=== PATIENT | male | born 1970 | race Caucasian/White ===

== ENCOUNTER 2016-06-05 18:08 | Emergency (ER) | payer MEDICAID ==
[2011-09-22 14:16] VITALS: BMI 25.0
[2016-06-05 18:49] LABS: BASOPHILS 0.6 % (0.0-2.0); EOSINOPHILS 0.1 % (0-7); HEMATOCRIT 48.3 % (42.0-54.0); HEMOGLOBIN 16.6 g/dL (13.5-17.5); IMMATURE GRANULOCYTES 0.1 % (0-5); LYMPHOCYTES 30.1 % (15-50); MCH 33.5 pg (26.0-34.0); MCHC 34.4 g/dL (31.0-37.0); MCV 97.4 fL (80.0-100.0); MEAN PLATELET VOLUME 9.6 fL (7.4-10.4); MONOCYTES 8.2 % (2-11); NEUTROPHILS 60.9 % (40-80); RBC 4.96 10x6/uL (4.20-6.10); RDW 13.7 % (11.5-14.5); WBC 7.2 10x3/uL (4.8-10.8)
[2016-06-05 18:55] LABS: PLATELET COUNT 293 10x3/uL (130-400)
[2016-06-05 19:04] LABS: ALBUMIN 4.1 g/dL (3.4-5.0); ALKALINE PHOSPHATASE 103 U/L (46-116); ALT (SGPT) 53 U/L (10-68); BILIRUBIN - TOTAL 0.39 mg/dL (0.2-1.3); CALC OSMOLALITY 287 mosm/kg (275-300); CARBON DIOXIDE 25.8 mmol/L (21.0-32.0); CHLORIDE - SERUM 102 mmol/L (98-107); CREATININE - SERUM 1.1 mg/dL (0.6-1.3); GLUCOSE 115 mg/dL (74-106); POTASSIUM - SERUM 3.9 mmol/L (3.5-5.1); PROTEIN - SERUM 7.9 g/dL (6.4-8.2); SODIUM 144 mmol/L (136-145); UREA NITROGEN 12 mg/dL (7-18); eGFR NON AFRICAN AMERICAN 76 mL/min (90-120)
[2016-06-05 19:05] LABS: APPEARANCE CLEAR (CLEAR); BACTERIA FEW /hpf (NONE SEEN); BILIRUBIN NEGATIVE (NEGATIVE); CALCIUM OXALATE CRYSTALS 0-5 /hpf (NONE SEEN); COLOR YELLOW (YELLOW); EPITHELIAL CELLS 0-5 /hpf (0-5); GLUCOSE NEGATIVE (NEGATIVE); HYALINE CAST OCC /lpf (NONE SEEN); KETONE NEGATIVE (NEGATIVE); LEUKOCYTE ESTERASE NEGATIVE (NEGATIVE); MUCUS >1+ /lpf (NONE SEEN); NITRITE NEGATIVE (NEGATIVE); PROTEIN TRACE mg/dL (NEGATIVE); SPECIFIC GRAVITY 1.015 (1.005-1.020); UDS - AMPHET NEGATIVE QUAL (NEGATIVE); UDS - BARB NEGATIVE QUAL (NEGATIVE); UDS - BENZO NEGATIVE QUAL (NEGATIVE); UDS - COCAINE NEGATIVE QUAL (NEGATIVE); UDS - METH NEGATIVE QUAL (NEGATIVE); UDS - OPIATE NEGATIVE QUAL (NEGATIVE); UDS - PCP NEGATIVE QUAL (NEGATIVE); UDS - THC NEGATIVE QUAL (NEGATIVE); UROBILINOGEN NORMAL (NORMAL); WHITE CELLS - URINE 0-5 /hpf (0-5)
== END 2016-06-06 04:53 | disposition short-term general hospital (02) ==
LOC: D.ER 18:08
PROVIDERS: Emergency Medicine
DX: F33.9 Major depressive disorder, recurrent, unspecified (principal); F10.10 Alcohol abuse, uncomplicated; F41.9 Anxiety disorder, unspecified; I10 Essential (primary) hypertension

== ENCOUNTER 2017-06-02 20:31 | Emergency (ER) | payer MEDICAID ==
[2011-09-22 14:16] VITALS: BMI 25.0
[2017-06-02 20:55] LABS: BASOPHILS 0.3 % (0-2); EOSINOPHILS 0.8 % (0-7); HEMATOCRIT 42.6 % (42.0-54.0); HEMOGLOBIN 14.8 g/dL (13.5-17.5); IMMATURE GRANULOCYTES 0.3 % (0-5); LYMPHOCYTES 33.8 % (15-50); MCH 34.3 pg (26.0-34.0); MCHC 34.7 g/dL (31.0-37.0); MCV 98.6 fL (80.0-100.0); MEAN PLATELET VOLUME 9.7 fL (7.4-10.4); MONOCYTES 8.5 % (2-11); NEUTROPHILS 56.3 % (40-80); RBC 4.32 10x6/uL (4.20-6.10); RDW 13.4 % (11.5-14.5); WBC 8.7 10x3/uL (4.8-10.8)
[2017-06-02 21:00] LABS: PLATELET COUNT 204 10x3/uL (130-400)
[2017-06-02 21:11] LABS: ALBUMIN 3.8 g/dL (3.4-5.0); ANION GAP 11.8 mmol/L (8-16); BILIRUBIN - TOTAL 0.24 mg/dL (0.2-1.3); CALCIUM 8.8 mg/dL (8.5-10.1); CARBON DIOXIDE 28.6 mmol/L (21.0-32.0); CREATININE - SERUM 1.5 mg/dL (0.6-1.3); MAGNESIUM - SERUM 1.7 mg/dL (1.8-2.4); POTASSIUM - SERUM 3.4 mmol/L (3.5-5.1); PROTEIN - SERUM 7.2 g/dL (6.4-8.2)
== END 2017-06-02 23:45 | disposition home or self-care (01) ==
LOC: D.ER 20:31
PROVIDERS: Emergency Medicine
DX: F10.239 Alcohol dependence with withdrawal, unspecified (principal); I10 Essential (primary) hypertension

== ENCOUNTER → 2019-09-23 09:09 | Outpatient (CLI) | payer MEDICAID ==
[2011-09-22 14:16] VITALS: BMI 25.0
== END | disposition home or self-care (01) ==
LOC: D.US 09:09
PROVIDERS: ATTEND Emergency Medicine
DX: R79.89 Other specified abnormal findings of blood chemistry (principal); E78.00 Pure hypercholesterolemia, unspecified

== ENCOUNTER 2019-10-19 15:31 | Inpatient (IN) | payer MEDICAID ==
[~2019-10-19] VITALS: Ht 185.4 cm; Wt 104.3 kg
[2019-10-19] MEDS ORDERED: OMEPRAZOLE20 M1 PO (15:45)
[2019-10-19] MEDS ORDERED: CLARITIN 10 MG10 MG PO (15:46)
[2019-10-19] MEDS ORDERED: LIPITOR20 MG PO (15:46)
[2019-10-19] MEDS ORDERED: CARAFATE1 G PO (15:46)
[2019-10-19] MEDS ORDERED: COZAAR50 MG PO (15:46)
[2019-10-19 16:41] LABS: HEMATOCRIT 40.8 % (42.0-54.0); HEMOGLOBIN 14.3 g/dL (13.5-17.5); MCH 35.1 pg (26.0-34.0); MCV 100.2 fL (80.0-100.0); MEAN PLATELET VOLUME 10.1 fL (7.4-10.4); NEUTROPHILS 78.8 % (40-80); PLATELET COUNT 209 10x3/uL (130-400); RBC 4.07 10x6/uL (4.20-6.10); RDW 13.5 % (11.5-14.5); WBC 11.3 10x3/uL (4.8-10.8)
[2019-10-19 16:48] LABS: ALBUMIN 2.6 g/dL (3.4-5.0); ALKALINE PHOSPHATASE 221 U/L (30-120); AMYLASE - SERUM 93 U/L (25-115); BILIRUBIN - TOTAL 1.35 mg/dL (0.2-1.3); CALC OSMOLALITY 266 mosm/kg (275-300); CALCIUM 7.2 mg/dL (8.5-10.1); CARBON DIOXIDE 20.1 mmol/L (21.0-32.0); CHLORIDE - SERUM 97 mmol/L (98-107); GLUCOSE 160 mg/dL (74-106); LIPASE 1009 U/L (73-393); POTASSIUM - SERUM 3.7 mmol/L (3.5-5.1); SODIUM 130 mmol/L (136-145); TROPONIN-I < 0.017 ng/mL (0.000-0.060); UREA NITROGEN 20 mg/dL (7-18)
[2019-10-19 17:12] LABS: CREATININE - SERUM 1.7 mg/dL (0.6-1.3); eGFR NON AFRICAN AMERICAN 45 mL/min (90-120)
[2019-10-19 17:13] LABS: ALT (SGPT) 97 U/L (10-68); PROTEIN - SERUM 5.4 g/dL (6.4-8.2)
[2019-10-19 17:50] LABS: BACTERIA MODERATE /hpf (NEGATIVE); BILIRUBIN NEGATIVE (NEGATIVE); GLUCOSE NEGATIVE (NEGATIVE); KETONE NEGATIVE (NEGATIVE); NITRITE NEGATIVE (NEGATIVE); RED CELLS - URINE OCC /hpf (0-5); SPECIFIC GRAVITY 1.015 (1.005-1.020); UROBILINOGEN NORMAL (NORMAL); WHITE CELLS - URINE 0-5 /hpf (NEGATIVE)
[2019-10-19 19:00] VITALS: BP 101/70
[2019-10-19 20:00] VITALS: BP 122/83
--- NOTE | 2019-10-19 20:48 | NUR ---
WILL RESCREEN PT FOR COVID-19 DUE TO PT BEING TESTED AT PCP OFFICE 10/18/2019. NEW SCREEN FOR THIS STAY.
[2019-10-19] MEDS ORDERED: ADDERALL 30 MG30 MG PO (21:40)
[2019-10-19 21:42] VITALS: BMI 30.4
[2019-10-20] VITALS: BP 120/78
[2019-10-20 06:34] LABS: INR 1.04 (0.85-1.17); PROTIME 13.6 SECONDS (11.6-15.0)
[2019-10-20 07:21] LABS: HEMATOCRIT 34.4 % (42.0-54.0); HEMOGLOBIN 12.1 g/dL (13.5-17.5); LYMPHOCYTES 10.2 % (15-50); MCH 35.7 pg (26.0-34.0); MCHC 35.2 g/dL (31.0-37.0); MCV 101.5 fL (80.0-100.0); MEAN PLATELET VOLUME 11.8 fL (7.4-10.4); NEUTROPHILS 82.6 % (40-80); PLATELET COUNT 221 10x3/uL (130-400); RBC 3.39 10x6/uL (4.20-6.10); RDW 13.9 % (11.5-14.5); WBC 12.9 10x3/uL (4.8-10.8)
[2019-10-20 07:32] LABS: ANION GAP 16.6 mmol/L (8-16); CREATININE - SERUM 1.4 mg/dL (0.6-1.3); POTASSIUM - SERUM 3.6 mmol/L (3.5-5.1)
[2019-10-20 07:33] LABS: ALBUMIN 2.8 g/dL (3.4-5.0); BILIRUBIN - TOTAL 0.85 mg/dL (0.2-1.3); PROTEIN - SERUM 4.9 g/dL (6.4-8.2)
[2019-10-20 07:38] LABS: CALCIUM 6.2 mg/dL (8.5-10.1)
--- NOTE | 2019-10-20 09:15 | NUR ---
Scanned lab results COVID19 Negative from physician's office. Discontinue COVID19 Isolation.
[2019-10-20 13:47] VITALS: Ht 185.4 cm; Wt 104.3 kg
[2019-10-20 14:49] VITALS: BP 126/74
[2019-10-20 20:00] VITALS: BP 131/87
--- NOTE | 2019-10-21 03:13 | NUR ---
I have reviewed this patient and I concur with the Shift Assessment completed by the Licensed Practical Nurse today this shift.
[2019-10-21 04:00] VITALS: BP 112/62
[2019-10-21 06:10] LABS: ALBUMIN 2.3 g/dL (3.4-5.0); ALKALINE PHOSPHATASE 189 U/L (30-120); CARBON DIOXIDE 22.7 mmol/L (21.0-32.0); CREATININE - SERUM 1.1 mg/dL (0.6-1.3); GLUCOSE 92 mg/dL (74-106); PROTEIN - SERUM 5.5 g/dL (6.4-8.2); eGFR NON AFRICAN AMERICAN 75 mL/min (90-120)
[2019-10-21 06:38] LABS: HEMATOCRIT 32.2 % (42.0-54.0); HEMOGLOBIN 11.3 g/dL (13.5-17.5); LYMPHOCYTES 18.2 % (15-50); MCH 35.6 pg (26.0-34.0); MCHC 35.1 g/dL (31.0-37.0); MCV 101.6 fL (80.0-100.0); MEAN PLATELET VOLUME 11.4 fL (7.4-10.4); NEUTROPHILS 71.6 % (40-80); RBC 3.17 10x6/uL (4.20-6.10); RDW 13.5 % (11.5-14.5)
[2019-10-21 06:40] LABS: PLATELET COUNT 163 10x3/uL (130-400); WBC 6.5 10x3/uL (4.8-10.8)
[2019-10-21 07:44] LABS: ALT (SGPT) 61 U/L (10-68); AMYLASE - SERUM 31 U/L (25-115); LIPASE 237 U/L (73-393); UREA NITROGEN 6 mg/dL (7-18)
[2019-10-21 07:45] LABS: CALC OSMOLALITY 275 mosm/kg (275-300); CHLORIDE - SERUM 106 mmol/L (98-107); SODIUM 139 mmol/L (136-145)
[2019-10-21 07:46] LABS: CALCIUM 6.5 mg/dL (8.5-10.1)
[2019-10-21 08:22] VITALS: BP 140/90
[2019-10-21 11:19] VITALS: BP 134/89
[2019-10-21 20:27] VITALS: BP 159/94
[2019-10-22 04:39] VITALS: BP 139/88
--- NOTE | 2019-10-22 06:41 | NUR ---
I have reviewed this patient and I concur with the Shift Assessment completed by the Licensed Practical Nurse today this shift.
[2019-10-22 06:47] LABS: ALBUMIN 2.4 g/dL (3.4-5.0); ANION GAP 11.3 mmol/L (8-16); BILIRUBIN - TOTAL 0.88 mg/dL (0.2-1.3); CARBON DIOXIDE 26.9 mmol/L (21.0-32.0); CREATININE - SERUM 1.2 mg/dL (0.6-1.3); POTASSIUM - SERUM 3.2 mmol/L (3.5-5.1); PROTEIN - SERUM 5.7 g/dL (6.4-8.2)
[2019-10-22 06:52] LABS: CALCIUM 6.9 mg/dL (8.5-10.1)
[2019-10-22 07:07] LABS: BASOPHILS 0.3 % (0-2); EOSINOPHILS 1.7 % (0-7); HEMATOCRIT 32.6 % (42.0-54.0); HEMOGLOBIN 10.8 g/dL (13.5-17.5); IMMATURE GRANULOCYTES 0.3 % (0-5); MCH 33.6 pg (26.0-34.0); MCHC 33.1 g/dL (31.0-37.0); MCV 101.6 fL (80.0-100.0); MEAN PLATELET VOLUME 9.8 fL (7.4-10.4); MONOCYTES 9.6 % (2-11); NEUTROPHILS 64.1 % (40-80); PLATELET COUNT 127 10x3/uL (130-400); RBC 3.21 10x6/uL (4.20-6.10); RDW 13.7 % (11.5-14.5); WBC 5.8 10x3/uL (4.8-10.8)
--- NOTE | 2019-10-22 07:55 | NUR ---
PT ROLLED OVER ON IV TUBING AND PULLED OUT RIGHT WRIST 20G IV WITH CATH INTACT. INSERTED A RIGHT FA 22G IV.
[2019-10-22 08:00] VITALS: BP 142/91
--- NOTE | 2019-10-22 09:43 | NUR ---
LIZANDRO SORIANO GAVE PT SICAHRGE INSTRUCTIONS AND DID TEACH ING AND PT SIGNED DISCHARGE PAPERWORK SHE ASLO DC'D PT'S LEFT FA IV. PT LEFT WITH FAMILY MEMBER IN THEIR PERSONAL CAR.
--- NOTE | 2019-10-22 09:43 | NUR ---
PROVIDED VERBAL AND WRITTEN DISCHARGE TEACHING TO PT, WHO VERBALIZED UNDERSTANDING REGARDING TEACHING. WHEELED PT OUT TO ER ENTRANCE WITH ALL BELONGINGS, NAD NOTED.
== END 2019-10-22 09:44 | disposition home or self-care (01) | DRG 439 ==
LOC: D.ER 15:31 → D.M2 19:30
PROVIDERS: Emergency Medicine; ADMIT Legal Medicine; ATTEND Legal Medicine
DX: K85.90 Acute pancreatitis without necrosis or infection, unspecified (principal); N17.9 Acute kidney failure, unspecified; E87.1 Hypo-osmolality and hyponatremia; D64.9 Anemia, unspecified; E83.51 Hypocalcemia; I10 Essential (primary) hypertension

== ENCOUNTER 2020-08-14 14:30 | Inpatient (IN) | payer BC ==
[~2020-08-14] VITALS: Ht 185.4 cm; Wt 111.1 kg
[~2020-08-14 14:30] MED LIST: ADDERALL 30 MG30 MG PO; CARAFATE1 G PO; CLARITIN 10 MG10 MG PO; COZAAR50 MG PO; LIPITOR20 MG PO; OMEPRAZOLE20 M1 PO
[2020-08-14 14:54] LABS: BASOPHILS 0.6 % (0-2); EOSINOPHILS 0.8 % (0-7); HEMATOCRIT 41.3 % (42.0-54.0); HEMOGLOBIN 13.8 g/dL (13.5-17.5); IMMATURE GRANULOCYTES 0.1 % (0-5); LYMPHOCYTE ABS# 1.21 10x3/uL (1.32-3.57); LYMPHOCYTES 15.4 % (15-50); MCH 33.2 pg (26.0-34.0); MCHC 33.4 g/dL (31.0-37.0); MCV 99.3 fL (80.0-100.0); MEAN PLATELET VOLUME 10.1 fL (7.4-10.4); MONOCYTES 8.4 % (2-11); NEUTROPHIL ABS# 5.87 10x3/uL (1.78-5.38); NEUTROPHILS 74.7 % (40-80); RBC 4.16 10x6/uL (4.20-6.10); RDW 14.2 % (11.5-14.5); WBC 7.9 10x3/uL (4.8-10.8)
[2020-08-14 15:21] LABS: CALC OSMOLALITY 281 mosm/kg (275-300); CALCIUM 9.1 mg/dL (8.5-10.1); CARBON DIOXIDE 19.4 mmol/L (21.0-32.0); CHLORIDE - SERUM 102 mmol/L (98-107); CREATININE - SERUM 1.9 mg/dL (0.6-1.3); GLUCOSE 147 mg/dL (74-106); POTASSIUM - SERUM 3.8 mmol/L (3.5-5.1); SODIUM 138 mmol/L (136-145); UREA NITROGEN 20 mg/dL (7-18); eGFR NON AFRICAN AMERICAN 40 mL/min (90-120)
[2020-08-14 15:30] LABS: ALBUMIN 3.7 g/dL (3.4-5.0); ALKALINE PHOSPHATASE 102 U/L (30-120); ALT (SGPT) 58 U/L (10-68); AMYLASE - SERUM 42 U/L (25-115); BILIRUBIN - TOTAL 0.75 mg/dL (0.2-1.3); LIPASE 251 U/L (73-393); PROTEIN - SERUM 7.5 g/dL (6.4-8.2)
[2020-08-14 15:34] LABS: TROPONIN-I < 0.017 ng/mL (0.000-0.060)
[2020-08-14 15:35] LABS: PLATELET COUNT 206 10x3/uL (130-400)
[2020-08-14 15:38] LABS: BILIRUBIN NEGATIVE (NEGATIVE); KETONE NEGATIVE (NEGATIVE); NITRITE NEGATIVE (NEGATIVE); UROBILINOGEN NORMAL mg/dL (< 2)
[2020-08-14 15:39] LABS: WHITE CELLS - URINE 0-5 HPF (0-1)
[2020-08-14 15:40] LABS: BACTERIA FEW HPF (NONE SEEN)
--- NOTE | 2020-08-14 16:20 | NUR ---
STOOL GUIAC NEGATIVE. ERP NOTIFIED. PT TOLERATED WELL.
[2020-08-14 19:52] VITALS: BP 138/82
--- NOTE | 2020-08-14 21:45 | NUR ---
PT ARRIVED TO FLOOR VIA WHEELCHAIR, AOX4. AMBULATED TO BED WITHOUT DIFFICULTY. DENIES NAUSEA AT THIS TIME. STATES HE HAS BEEN HAVING DIARRHEA AND GOES 3-4X/DAY AND HAVE BEEN OILY. STATES PAIN TO LUQ AND OFF AND ON IN THE EPIGASTRIC AREA. RADIATES TO LEFT FLANK AND LOWER BACK. STATES CRAMPING AND STABBING. IV LEFT FA INFUSING MVI @ 125 AT THIS TIME. REQUESTED AND GIVEN MORPHINE FOR PAIN. PROVIDED INCENTIVE SPIROMETER. PT DEMONSTRATED APPROPRIATE WAY TO USE AND VERBALIZED UNDERSTANDING OF TEACHING. DENIES OTHER NEEDS AT THIS TIME. CL IN REACH
[2020-08-14] MEDS ORDERED: NORVASC5 MG PO (22:11)
[2020-08-14] MEDS ORDERED: VYVANSE60 MG PO (22:12)
[2020-08-14 23:34] VITALS: BP 146/91; BMI 32.3
[2020-08-15] VITALS: BP 146/91
--- NOTE | 2020-08-15 00:30 | NUR ---
CALLED DR RMOANO TO LET HER KNOW PT IS VERY ITCHY AFTER MORPHINE ADMINISTRATION. ORDER RECIEVED FOR BENADRYL AND TO CHANGE MORPHINE TO DILAUDID. GAVE BENADRYL ORDERED. PT DENIES OTHER NEEDS. CL IN REACH
[2020-08-15 04:00] VITALS: BP 128/80
--- NOTE | 2020-08-15 07:19 | NUR ---
RECIEVED BEDSIDE REPORT. BED LOW POSITION, CALL LIGHT IN REACH. IN BED SLEEPING. AROUSES TO VOICE. DENIES NEEDS. FREE FROM SIGNS OF DISTRESS. WILL CONTINUE TO MONITOR.
[2020-08-15 09:52] LABS: BASOPHILS 0.5 % (0-2); EOSINOPHILS 3.8 % (0-7); HEMATOCRIT 35.7 % (42.0-54.0); HEMOGLOBIN 11.5 g/dL (13.5-17.5); LYMPHOCYTE ABS# 1.03 10x3/uL (1.32-3.57); LYMPHOCYTES 26.1 % (15-50); MCH 32.7 pg (26.0-34.0); MCHC 32.2 g/dL (31.0-37.0); MONOCYTES 8.9 % (2-11); NEUTROPHIL ABS# 2.39 10x3/uL (1.78-5.38); NEUTROPHILS 60.7 % (40-80); RBC 3.52 10x6/uL (4.20-6.10)
[2020-08-15 09:53] LABS: ANION GAP 11.2 mmol/L (8-16); BILIRUBIN - TOTAL 0.72 mg/dL (0.2-1.3); CALCIUM 8.3 mg/dL (8.5-10.1); CARBON DIOXIDE 26.6 mmol/L (21.0-32.0); CREATININE - SERUM 1.5 mg/dL (0.6-1.3); POTASSIUM - SERUM 3.8 mmol/L (3.5-5.1); PROTEIN - SERUM 6.2 g/dL (6.4-8.2)
[2020-08-15 09:54] LABS: MCV 101.4 fL (80.0-100.0); PLATELET COUNT 132 10x3/uL (130-400); WBC 3.9 10x3/uL (4.8-10.8)
[2020-08-15 10:11] VITALS: BP 118/68
[2020-08-15 14:48] VITALS: BP 139/95
[2020-08-15 14:51] VITALS: Ht 185.4 cm; Wt 111.1 kg
[2020-08-15 17:11] VITALS: BP 126/84
[2020-08-15 20:00] VITALS: BP 117/80
--- NOTE | 2020-08-15 20:00 | NUR ---
PT SITTING UP IN BED WITHOUT DISTRESS, AOX4. REQUESTED AND GIVEN CHICKEN BROTH. STATES PAIN TO ABD 09/13. GAVE DILAUDID ORDERED. DENIES OTHER NEEDS. CL IN REACH
[2020-08-16] VITALS: BP 128/82
[2020-08-16 04:00] VITALS: BP 121/73
--- NOTE | 2020-08-16 07:28 | NUR ---
RECIEVED BEDSIDE REPORT. IN BED, AROUSES TO VOICE. DENIES NEEDS AT THIS TIME. FREE FROM SIGNS OF DISTRESS. BED LOW POSITION, CALL LIGHT IN REACH. WILL CONTINUE TO MONITOR.
[2020-08-16 09:34] VITALS: BP 131/88
--- NOTE | 2020-08-16 13:32 | NUR ---
Nutrition follow-up: Diet: clear liquids; pt unable to tolerate anything past clears; not feeling well at this time. NPO after MN for EGD 08/17/20 Labs reviewed WT: 244# RDN follow-up: 08/20/20
[2020-08-16 13:44] VITALS: BP 147/75
[2020-08-16 16:23] VITALS: BP 116/67
--- NOTE | 2020-08-16 19:45 | NUR ---
RECEIVED BEDSIDE REPORT. PT LAYING IN BED A&O X4. PIV TO RIGHT FOREARM, PATENT AND INFUSING, NO REDNESS OR SWELLING. PT ABLE TO AMBULATE AD WINDY. EDUCATED PT ON CL AND NEEDS, VERBALIZED UNDERSTANDING. BED LOW, CL IN REACH.
[2020-08-16 20:00] VITALS: BP 126/80
[2020-08-17] VITALS: BP 117/78
--- NOTE | 2020-08-17 01:51 | NUR ---
INITIATED PIV IN RIGHT AC, 20 G X2 ATTEMPTS, GOOD RETURN, FLUSHES WELL, PT TOLERATED WELL. WCTM.
[2020-08-17 04:00] VITALS: BP 108/58
--- NOTE | 2020-08-17 08:36 | NUR ---
AWAKE AND ALERT. ORIENTED X3. REPORTS PAIN IMPROVED AFTER PRN DILAUDID. LUNGS ARE CLEAR BILATERLLY, NO COUGH NOTED. SKIN IS INTACT WITHOUT REDNESS. IV TO RIGHT AC IS PATENT WITHOUT REDNESS AT INSERTION SITE. FSBS WAS 100 THIS AM. DENIES NEEDS. PRO OP GIVEN AT THIS TIME.
[2020-08-17 08:52] VITALS: BP 119/69
[2020-08-17 12:29] VITALS: BP 115/83
--- NOTE | 2020-08-17 17:00 | NUR ---
SPOKE WITH DR. ROMANO RE D/C ORDER. SHE IS OK WITH HIM GOING HOME. DISCHARGE INSTRUCTIONS GIVEN BOTH VERBALLY AND WRITTEN. ALL QUESTIONS ANSWERED. PATIENT VERBALIZED UNDERSTANDING OF SAME. IV TO RIGHT AC D/C WITH CATHETER INTACT. NO NEW PRESCRIPTIONS NEEDED. ALL BELONGINGS WITH PATIENT. HOME AMBULATORY WITH MOTHER.
[2020-08-17 17:12] VITALS: BP 112/65
== END 2020-08-17 17:31 | disposition home or self-care (01) | DRG 439 ==
LOC: D.ER 14:30 → D.MS 19:16
PROVIDERS: Family Medicine; Surgery; ADMIT Legal Medicine; ATTEND Legal Medicine
PROC: 0DJ08ZZ Inspection of Upper Intestinal Tract, Via Natural or Artificial Opening Endoscopic (ICD-10-PCS; principal; 2020-08-17 09:00)
DX: K85.90 Acute pancreatitis without necrosis or infection, unspecified (principal); N17.9 Acute kidney failure, unspecified; E87.1 Hypo-osmolality and hyponatremia; K29.80 Duodenitis without bleeding; K86.1 Other chronic pancreatitis; N18.9 Chronic kidney disease, unspecified; D63.1 Anemia in chronic kidney disease; R73.9 Hyperglycemia, unspecified; F31.9 Bipolar disorder, unspecified; K29.70 Gastritis, unspecified, without bleeding

== ENCOUNTER 2020-09-14 14:04 | Inpatient (IN) | payer BC ==
[~2020-09-14] VITALS: Ht 185.4 cm; Wt 106.6 kg
[~2020-09-14 14:04] MED LIST changes: +NORVASC5 MG PO; +VYVANSE60 MG PO
[2020-09-14 14:41] LABS: BASOPHILS 0.7 % (0-2); EOSINOPHILS 0.2 % (0-7); HEMATOCRIT 42.7 % (42.0-54.0); HEMOGLOBIN 14.1 g/dL (13.5-17.5); LYMPHOCYTES 31.8 % (15-50); MCH 32.5 pg (26.0-34.0); MCV 98.4 fL (80.0-100.0); MEAN PLATELET VOLUME 7.6 fL (7.4-10.4); MONOCYTES 4.7 % (2-11); NEUTROPHILS 62.6 % (40-80); RBC 4.34 10x6/uL (4.20-6.10); RDW 14.1 % (11.5-14.5); WBC 5.2 10x3/uL (4.8-10.8)
[2020-09-14 14:46] LABS: PLATELET COUNT 247 10x3/uL (130-400)
[2020-09-14 15:04] LABS: CALC OSMOLALITY 288 mosm/kg (275-300); CALCIUM 8.5 mg/dL (8.5-10.1); CARBON DIOXIDE 26.8 mmol/L (21.0-32.0); CHLORIDE - SERUM 105 mmol/L (98-107); CREATININE - SERUM 1.4 mg/dL (0.6-1.3); GLUCOSE 111 mg/dL (74-106); SODIUM 144 mmol/L (136-145); UREA NITROGEN 16 mg/dL (7-18); eGFR NON AFRICAN AMERICAN 56 mL/min (90-120)
[2020-09-14 15:14] LABS: ALBUMIN 3.8 g/dL (3.4-5.0); ALKALINE PHOSPHATASE 95 U/L (30-120); ALT (SGPT) 54 U/L (10-68); AMYLASE - SERUM 28 U/L (25-115); BILIRUBIN - TOTAL 0.59 mg/dL (0.2-1.3); LIPASE 53 U/L (73-393); PROTEIN - SERUM 7.4 g/dL (6.4-8.2); TROPONIN-I < 0.017 ng/mL (0.000-0.060)
[2020-09-14] MEDS ORDERED: BUPROPION HCL100 MG PO (20:15)
[2020-09-14 20:20] VITALS: BMI 31.0
[2020-09-14 20:45] VITALS: BP 113/74
--- NOTE | 2020-09-15 03:58 | NUR ---
I have reviewed this patient and I concur with the Shift Assessment completed by the Licensed Practical Nurse today this shift.
[2020-09-15 05:15] VITALS: BP 135/74
[2020-09-15 06:49] LABS: BASOPHILS 0.9 % (0-2); EOSINOPHILS 0.8 % (0-7); HEMATOCRIT 40.1 % (42.0-54.0); HEMOGLOBIN 13.3 g/dL (13.5-17.5); LYMPHOCYTES 37.6 % (15-50); MCH 32.9 pg (26.0-34.0); MCHC 33.1 g/dL (31.0-37.0); MCV 99.6 fL (80.0-100.0); MEAN PLATELET VOLUME 8.1 fL (7.4-10.4); MONOCYTES 5.2 % (2-11); NEUTROPHILS 55.5 % (40-80); PLATELET COUNT 218 10x3/uL (130-400); RBC 4.03 10x6/uL (4.20-6.10); WBC 5.3 10x3/uL (4.8-10.8)
[2020-09-15 07:15] LABS: ALBUMIN 4.3 g/dL (3.4-5.0); ANION GAP 18.6 mmol/L (8-16); BILIRUBIN - TOTAL 0.78 mg/dL (0.2-1.3); CARBON DIOXIDE 23.2 mmol/L (21.0-32.0); CREATININE - SERUM 1.4 mg/dL (0.6-1.3); POTASSIUM - SERUM 3.8 mmol/L (3.5-5.1); PROTEIN - SERUM 6.8 g/dL (6.4-8.2)
--- NOTE | 2020-09-15 07:34 | NUR ---
PT GIVEN PAIN AND ANXIETY MED BY DISTRIBUTION SYSTEM OPERATOR NURSE BEFORE SHE GOT OFF SHIFT. STATED THAT "HE CAN'T HANDLE IT ANYMORE." WHILE WALKING OUT INTO THE [place]. CL IN REACH. NO NEEDS AT THIS TIME. WCTM
--- NOTE | 2020-09-15 07:45 | NUR ---
PT STATES PAIN LEVEL STILL A 9/10 ON THE PAIN SCALE. QUESTIONS ASKED TO WHETHER OR NOT HE NEEDED HIS OTHER MEDICATIONS. I TOLD HIM THAT I WOULD REVIEW THEM WITH DR ROMANO WHEN I COULD GET AHOLD OF HER. PT VOICED UNDERSTANDING. MOM JACKIE ABURTO IN ROOM. CL IN REACH. WCTM
[2020-09-15 09:14] VITALS: BP 140/80
--- NOTE | 2020-09-15 09:34 | NUR ---
LATE ENTRY: 09/14/20 @ 1500 CALLED TO CONFIRM PT APPT FOR RENAL BIOPSY ON THURSDAY AND PT STATES HE IS IN THE ER AT THE TIME OF CALL. PT IS NOW ADMITTED AND WILL HAVE BIOPSY THURSDAY PROVIDED LABS ARE APPROPRIATE TO PROCEDE
--- NOTE | 2020-09-15 10:37 | NUR ---
SPOKE WITH DR ROMANO ABOUT MEDICATIONS. ORDERS GIVEN TO RESTART AMLODIPINE BESYLATE AND BUPROPION.
[2020-09-15 11:44] VITALS: BP 117/79
[2020-09-15 13:35] VITALS: Ht 185.4 cm; Wt 106.6 kg
[2020-09-15 13:37] VITALS: BP 142/90
--- NOTE | 2020-09-15 14:20 | NUR ---
PT RESTING AT THIS TIME. CL IN REACH. NO NEEDS AT THIS TIME. WCTM
[2020-09-15 17:21] VITALS: BP 158/94
[2020-09-15 20:00] VITALS: BP 115/65
[2020-09-16 06:33] VITALS: BP 119/76
[2020-09-16 07:00] LABS: BILIRUBIN NEGATIVE (NEGATIVE); KETONE NEGATIVE mg/dL (< 1+); NITRITE NEGATIVE (NEGATIVE); UROBILINOGEN NORMAL mg/dL (< 2); WHITE CELLS - URINE 1 HPF (0-1)
[2020-09-16 09:05] VITALS: BP 106/50
[2020-09-16 11:59] VITALS: BP 97/55
[2020-09-16 18:10] VITALS: BP 161/94
[2020-09-16 20:00] VITALS: BP 127/79
[2020-09-17 04:00] VITALS: BP 130/85
[2020-09-17 07:05] LABS: BASOPHILS 0.5 % (0-2); EOSINOPHILS 3.5 % (0-7); HEMATOCRIT 35.2 % (42.0-54.0); HEMOGLOBIN 11.8 g/dL (13.5-17.5); LYMPHOCYTES 23.4 % (15-50); MCH 33.4 pg (26.0-34.0); MCHC 33.7 g/dL (31.0-37.0); MCV 99.2 fL (80.0-100.0); MEAN PLATELET VOLUME 7.8 fL (7.4-10.4); MONOCYTES 7.1 % (2-11); NEUTROPHILS 65.5 % (40-80); RBC 3.55 10x6/uL (4.20-6.10); RDW 14.2 % (11.5-14.5); WBC 3.9 10x3/uL (4.8-10.8)
[2020-09-17 07:07] LABS: APTT 28.2 SECONDS (22.8-39.4)
[2020-09-17 07:08] LABS: INR 1.11 (0.85-1.17); PROTIME 13.3 SECONDS (11.6-15.0)
[2020-09-17 07:13] LABS: ANION GAP 10.5 mmol/L (8-16); CALCIUM 8.2 mg/dL (8.5-10.1); CREATININE - SERUM 1.3 mg/dL (0.6-1.3); POTASSIUM - SERUM 3.5 mmol/L (3.5-5.1)
[2020-09-17 07:25] LABS: PLATELET COUNT 129 10x3/uL (130-400)
--- NOTE | 2020-09-17 07:25 | NUR ---
PATIENT IS WITHOUT DISTRESS.UP IN ROOM.CALL LIGHT IN REACH
--- NOTE | 2020-09-17 08:08 | NUR ---
RECEIVED CALL FROM SPECIALS RN PAOLA, STATED PATIENT BIOPSY IS TO BE DONE OUTPT AND THAT IS HOW IT IS SCHEDULED, INFORMED PATIENT AND HE STATED HE WAS TOLD BY DR CAIN [address] LIAISON THAT HE CAN HAVE IT SONE WHILE INPT SINCE HE DOES NOT HAVE A RIDE BACK, CALLED PAOLA WEBER BACK AND INFORMED OF PATIENT STATEMENT. WAS TOLD TO KEEP PATIENT NPO UNTIL SHE SPOKE TO . PATIENT IS WALKING HALLS AND ASKING OTHER NURSES WHEN BIOPSY WILL BE DONE, PRN TO BE GIVEN AT 0900
[2020-09-17 09:09] VITALS: BP 151/92
--- NOTE | 2020-09-17 09:32 | NUR ---
RECEIVED CALL FROM [employer], DR DUNHAM WILL DO BIOPSY TODAY, INFORMED PATIENT. CONTINUE WITH PLAN OF CARE
[2020-09-17 11:31] VITALS: BP 107/61
--- NOTE | 2020-09-17 11:43 | NUR ---
RECEIVED PATIENT BACK TO ROOM, PATIENT STATES HE CAN NOT GO HOME BECAUSE HE HAS STAIRS AND DOES NOT HAVE ANYONE HOME TO HELP HIM EXPLAINED THAT HE IS TO REMAIN BEDREST FOR 4 HOURS AND AFTERWARDS SHOULD BE FINE, UNSURE OF WHEN HE WILL BE DC BUT EXPLAINED HE SHOULD NOT WORRY ABOUT THIS AT THIS TIME. CONTINUE WITH PLAN OF CARE
[2020-09-17 11:44] VITALS: BP 107/61
--- NOTE | 2020-09-17 12:00 | NUR ---
PATIENT NONCOMPLIANT ABOUT STAYING IN BED FOR 4 HOURS JUNPED OUT OF BED WENT TO RESTROOM TOLD PATIENT HE NEEDED TO STAY IN BED PATIENT STARTED TO YELL AT ME TOLD HIM RISKS FOR BLEEDING AND THAT IS WHY WE HAVE A CALL LIGHT PATIENT THEN TOLD NE TO GET OUT OF HIS ROOM
--- NOTE | 2020-09-17 12:06 | NUR ---
BROUGHT PATIENT BED TORRES AND URINAL PATIENT STATED TOO LATE FOR THAT, TOOK OFF BP CUFF, EXPLAINED I NEEDED FREQUENT VITALS ,PATIENT TOLD ME TO GET OUT, HAD CHARGE NURSE TALK TO PATIENT
--- NOTE | 2020-09-17 12:56 | NUR ---
PATIENT IS BEING NON COMPLIANT ON BEDREST FOR FOUR HOURS. HE HAS BEEN UP TO BATHROOM AND NOW UP AT BEDSIDE EATING LUNCH.HE ALSO HAS GOTTEN ANGRY WITH NURSING AND TOLD THEM TO GET OUT OF HIS ROOM.
[2020-09-17 17:46] VITALS: BP 124/62
--- NOTE | 2020-09-17 19:59 | NUR ---
PATIENT REQUESTED NIGHT MEDS AND DENIES OTHER NEEDS AT THIS TIME. BED IN LOWEST POSITION AND CALL LIGHT IN REACH. ENCOURAGED PATIENT TO CALL WITH OTHER NEEDS.
[2020-09-17 20:00] VITALS: BP 100/60
--- NOTE | 2020-09-17 20:11 | NUR ---
ADMINISTERED MEDS PER ORDERS. PATIENT CHRISSIE WELL. ENCOURAGED TO CALL WITH NEEDS.
[2020-09-18] VITALS: BP 91/57
[2020-09-18 04:00] VITALS: BP 108/66
[2020-09-18 09:07] VITALS: BP 91/52
[2020-09-18 09:50] LABS: BASOPHILS 0.3 % (0-2); EOSINOPHILS 2.7 % (0-7); HEMATOCRIT 37.5 % (42.0-54.0); HEMOGLOBIN 12.6 g/dL (13.5-17.5); LYMPHOCYTES 9.6 % (15-50); MCH 33.4 pg (26.0-34.0); MCHC 33.5 g/dL (31.0-37.0); MCV 99.7 fL (80.0-100.0); MEAN PLATELET VOLUME 7.6 fL (7.4-10.4); MONOCYTES 6.2 % (2-11); NEUTROPHILS 81.2 % (40-80); PLATELET COUNT 149 10x3/uL (130-400); RBC 3.76 10x6/uL (4.20-6.10); RDW 14.1 % (11.5-14.5)
[2020-09-18 10:13] LABS: WBC 6.5 10x3/uL (4.8-10.8)
[2020-09-18 12:42] VITALS: BP 110/63
--- NOTE | 2020-09-18 16:37 | NUR ---
I have reviewed this patient and I concur with the Shift Assessment completed by the Licensed Practical Nurse today this shift.
[2020-09-18 17:08] VITALS: BP 103/64
--- NOTE | 2020-09-18 17:37 | MORECARE ---
CASE MANAGEMENT DISCHARGE SUMMARY PATIENT: GURJIT GONZALES UNIT: [id number] ADM DATE: 09/14/20 AGE: 50 : 68 SEX: M ROOM/BED: D.[facility] AUTHOR: ANNAMARIE,DOC PHYSICIAN: REFERRING PHYSICIAN: MATHEUS ROMANO MD DATE OF SERVICE: 09/18/20 Case Management Discharge Planning Summary DCP REVIEW SUMMARY ANTICIPATED D/C DATE: EXPECTED LOS : CASE STATUS: DCP Initiated INITIAL REVIEW: 09/14/2020 INITIAL REVIEWER: Mahendra Yates FINAL DISCHARGE DISPOSITION: : FINAL REVIEWER: FINAL REVIEW DATE: DCP Focus Questions & Answers QUESTION: ANSWER : PATIENT: GURJIT GONZALES ENCOUNTER: [id number] MEDICAL RECORD#: [id number] ADMISSION DATE: 09/14/2020 DISCHARGE DATE: ATTENDING MD: : AGE: 50 MARITAL STATUS: S DC PLAN ID: [id number] FACILITY: [facility] PRINTED ON: 09/18/20 17:37 CT All edits/amendments must be made on the electronic document DICTATION DATE: 09/18/201736 STOCK MIXER: STEPHIE 09/18/201736 RPT#: [id number] DC DATE: STATUS: ADM IN [facility] [address] [place] [address] END OF REPORT
--- NOTE | 2020-09-18 17:48 | MORECARE ---
CASE MANAGEMENT DISCHARGE SUMMARY PATIENT: GURJIT GONZALES JR UNIT: [id number] ADM DATE: 09/14/20 AGE: 50 : 68 SEX: M ROOM/BED: D.2227 AUTHOR: ANNAMARIE,DOC PHYSICIAN: REFERRING PHYSICIAN: MATHEUS ROMANO MD DATE OF SERVICE: 09/18/20 Case Management Discharge Planning Summary COMMENTS ENTERED DATE: 09/18/20 17:38 CT COMMENT TYPE: Discharge Planning REVIEWER: Mahendra Yates CM met with patient to complete DC plan and to evaluate needs. Patient stated that he readmitted because he was needed a biopsy. Patient stated that he was able to obtain his medications after last discharge but unfortunately was not able to keep his follow up appointment because he came back to the hospital early. Patient stated that he followed the dc instructions given to him. It appears that this readmission was due to risky behaviors with alcohol use. Patient lives independently with family and stated that his mother, Tricia Gonzales, is his person to notify. Patient stated that his home is safe and has electricity and running water. Patient stated that he does not have mobility issues and can enter and move about his home without difficulty. Patient stated that he has no problems paying for medications and he fills his medications at [facility] on [address]. Patient stated that his primary care physician is Dr. Romano. At discharge, the patient plans to return home and feels this is a safe discharge. CM discussed availability of home health, rehab services, and medical equipment. Patient declined HHS, SNF, IPR, and DME. Patient stated that he may need a cab for transportation home at discharge. Patient voiced no other needs at this time and is satisfied with DC plan. CM will continue to follow and will assist as needed with dc plans/needs. DCP REVIEW SUMMARY ANTICIPATED D/C DATE: EXPECTED LOS : CASE STATUS: DCP Initiated INITIAL REVIEW: 09/14/2020 INITIAL REVIEWER: Mahendra Yates FINAL DISCHARGE DISPOSITION: : FINAL REVIEWER: FINAL REVIEW DATE: DCP Focus Questions & Answers DCP Evaluation QUESTION: ANSWER Patient gives permission to discuss discharge plans with: (name, relationship and number) : mother, Tricia Gonzales, Patient's ability to cope with chronic illness : d. No chronic illness Patient's current cognitive status: : *Oriented to person, place, situation, time and present Family / Caregiver's ability to cope with chronic illness: : a. Adequate (ability to meet patient's medical needs, ensures patient attends medical appts.) Patient and/or caregiver agree upon recommended discharge plan? : Yes Physical Status: : Independent with ADL's Family / Caregiver's ability to cope with chronic illness: : a. Adequate (ability to meet patient's medical needs, ensures patient attends medical appts.) Functional screen assessment: : Basic needs can adequately be met by self Does the patient have the ability to pay for or attain post discharge needs / services? : Yes Living Arrangements: : Home with Extended Family Is there a likelihood that the patient will require additional services to return to the preadmission environment? : No Equipment needed for post hospitalization: : None Baseline cognitive status: : *Oriented to person, place, situation, time and present Patient with capacity for self-care or can be cared for in same environment as prior to hospitalization? : Yes Physical environment modification needed / anticipated for discharge: : No Medication Management: : Patient states can afford medications Medication Management: : Patient states can read and understand medication labels Pharmacy name(s): : [facility] [address] Does Patient have transportation to get home and to follow-up medical appointments when discharged from the hospital? : Yes Would patient like to participate in any Care Coordination programs (if applicable): : Not applicable Does the patient have electricity at home? : Yes Does the patient have running water in their house? : Yes Equipment in use: : None Mental health screen: : No mental health history DCP Re-evaluation QUESTION: ANSWER Would patient like to participate in any Care Coordination programs (if applicable): : Not applicable PATIENT: GURJIT GONZALES ENCOUNTER: [id number] MEDICAL RECORD#: [id number] ADMISSION DATE: 09/14/2020 DISCHARGE DATE: ATTENDING MD: MISAEL: AGE: 50 MARITAL STATUS: S DC PLAN ID: [id number] FACILITY: [facility] PRINTED ON: 09/18/20 17:48 CT All edits/amendments must be made on the electronic document DICTATION DATE: 09/18/201747 WEB SPECIALIST: STEPHIE 09/18/201747 RPT#: [id number] DC DATE: STATUS: ADM IN [facility] [address] [place] [address] END OF REPORT
[2020-09-18 20:00] VITALS: BP 130/75
--- NOTE | 2020-09-18 21:00 | NUR ---
ALERT UP AMBULATING IN ROOM, REQUESTING ATIVAN OR WHATEVER MEDS CAN HAVE, ATIVAN GIVEN ORDERED, SEE SHIFT ASSESSMENT , CALL LIGHT IN EACH
[2020-09-19] VITALS (7 sets, daily range): BP systolic 73–139; BP diastolic 50–96
[2020-09-19 09:07] LABS: BASOPHILS 0.4 % (0-2); EOSINOPHILS 3.2 % (0-7); HEMATOCRIT 37.8 % (42.0-54.0); HEMOGLOBIN 12.4 g/dL (13.5-17.5); MCH 33.1 pg (26.0-34.0); MCHC 32.8 g/dL (31.0-37.0); MEAN PLATELET VOLUME 7.4 fL (7.4-10.4); MONOCYTES 7.5 % (2-11); NEUTROPHILS 67.9 % (40-80); PLATELET COUNT 159 10x3/uL (130-400); RBC 3.74 10x6/uL (4.20-6.10); RDW 14.7 % (11.5-14.5)
[2020-09-19 09:17] LABS: ANION GAP 11.3 mmol/L (8-16); CALCIUM 8.8 mg/dL (8.5-10.1); CARBON DIOXIDE 26.7 mmol/L (21.0-32.0); CREATININE - SERUM 1.6 mg/dL (0.6-1.3)
--- NOTE | 2020-09-19 20:00 | NUR ---
ALERT UP AMBULATING IN HALLWAY, DENIES NEEDS AT THIS TIME, IV RESTARTED DUE TO LEAKING, SEE SHIFT ASSESSMENT, CALL LIGHT IN REACH
[2020-09-20] VITALS: BP 113/72
[2020-09-20 04:00] VITALS: BP 102/57
[2020-09-20 05:12] LABS: BASOPHILS 0.4 % (0-2); EOSINOPHILS 2.9 % (0-7); HEMATOCRIT 33.2 % (42.0-54.0); HEMOGLOBIN 11.2 g/dL (13.5-17.5); LYMPHOCYTES 16.8 % (15-50); MCH 33.5 pg (26.0-34.0); MCHC 33.8 g/dL (31.0-37.0); MCV 99.2 fL (80.0-100.0); MEAN PLATELET VOLUME 7.7 fL (7.4-10.4); MONOCYTES 6.5 % (2-11); NEUTROPHILS 73.4 % (40-80); PLATELET COUNT 161 10x3/uL (130-400); RBC 3.35 10x6/uL (4.20-6.10); RDW 14.6 % (11.5-14.5)
[2020-09-20 05:34] LABS: WBC 6.3 10x3/uL (4.8-10.8)
[2020-09-20 05:43] LABS: ANION GAP 12.7 mmol/L (8-16); CALCIUM 8.7 mg/dL (8.5-10.1); CARBON DIOXIDE 23.3 mmol/L (21.0-32.0); CREATININE - SERUM 1.6 mg/dL (0.6-1.3)
--- NOTE | 2020-09-20 08:28 | NUR ---
PT STATES HE IS HAVING ALOT OF ANXIETY. PT BP IS 95/62 ON LEFT ARM. BP IS 95/61 ON THE RIGHT ARM. CL IN REACH. PT BED IS UNMADE. MOTHER CALLED TO SEE IF HE HAD DISCHARGE ORDERS IN. WCTM
[2020-09-20 08:41] VITALS: BP 92/54
[2020-09-20 13:42] VITALS: BP 147/83
[2020-09-20 17:04] VITALS: BP 113/75
[2020-09-20 20:00] VITALS: BP 123/81
[2020-09-21] VITALS: BP 122/75
[2020-09-21 04:00] VITALS: BP 117/55
[2020-09-21 06:16] LABS: BASOPHILS 0.4 % (0-2); EOSINOPHILS 2.9 % (0-7); HEMATOCRIT 35.6 % (42.0-54.0); LYMPHOCYTES 20.6 % (15-50); MCH 33.2 pg (26.0-34.0); MCHC 33.6 g/dL (31.0-37.0); MCV 98.8 fL (80.0-100.0); MEAN PLATELET VOLUME 7.7 fL (7.4-10.4); MONOCYTES 7.7 % (2-11); NEUTROPHILS 68.4 % (40-80); RDW 14.6 % (11.5-14.5); WBC 5.9 10x3/uL (4.8-10.8)
[2020-09-21 06:27] LABS: PLATELET COUNT 199 10x3/uL (130-400)
[2020-09-21 06:30] LABS: ANION GAP 13.4 mmol/L (8-16); CALCIUM 8.9 mg/dL (8.5-10.1); CARBON DIOXIDE 23.6 mmol/L (21.0-32.0); CREATININE - SERUM 1.5 mg/dL (0.6-1.3)
[2020-09-21 09:41] VITALS: BP 110/70
[2020-09-21] MEDS ORDERED: LIBRIUM25 MG PO (11:25)
[2020-09-21] MEDS ORDERED: LIPITOR20 MG PO (11:25)
[2020-09-21] MEDS ORDERED: COZAAR50 MG PO (11:25)
[2020-09-21] MEDS ORDERED: TRAZODONE HCL150 MG PO (11:25)
[2020-09-21] MEDS ORDERED: PROTONIX40 MG PO (11:25)
[2020-09-21] MEDS ORDERED: LATUDA40 MG PO (11:25)
--- NOTE | 2020-09-21 11:54 | NUR ---
PT DISCHARGE INSTRUCTIONS GIVEN. PT VERBALIZED UNDERSTANDING. REFUSED WHEELCHAIR.
--- NOTE | 2020-09-21 13:18 | MORECARE ---
CASE MANAGEMENT DISCHARGE SUMMARY PATIENT: GURJIT GONZALES JR UNIT: [id number] ADM DATE: 09/14/20 AGE: 50 : 66 SEX: M ROOM/BED: D.2227 AUTHOR: ANNAMARIE,DOC PHYSICIAN: REFERRING PHYSICIAN: MATHEUS ROMANO MD DATE OF SERVICE: 09/21/20 Case Management Discharge Planning Summary COMMENTS ENTERED DATE: 09/18/20 17:38 CT COMMENT TYPE: Discharge Planning REVIEWER: Mahendra Yates CM met with patient to complete DC plan and to evaluate needs. Patient stated that he readmitted because he was needed a biopsy. Patient stated that he was able to obtain his medications after last discharge but unfortunately was not able to keep his follow up appointment because he came back to the hospital early. Patient stated that he followed the dc instructions given to him. It appears that this readmission was due to risky behaviors with alcohol use. Patient lives independently with family and stated that his mother, Tricia Gonzales, is his person to notify. Patient stated that his home is safe and has electricity and running water. Patient stated that he does not have mobility issues and can enter and move about his home without difficulty. Patient stated that he has no problems paying for medications and he fills his medications at [facility] on [address] Patient stated that his primary care physician is Dr. Romano. At discharge, the patient plans to return home and feels this is a safe discharge. CM discussed availability of home health, rehab services, and medical equipment. Patient declined HHS, SNF, IPR, and DME. Patient stated that he may need a cab for transportation home at discharge. Patient voiced no other needs at this time and is satisfied with DC plan. CM will continue to follow and will assist as needed with dc plans/needs. DCP REVIEW SUMMARY ANTICIPATED D/C DATE: EXPECTED LOS : CASE STATUS: DCP Initiated INITIAL REVIEW: 09/14/2020 INITIAL REVIEWER: Mahendra Yates FINAL DISCHARGE DISPOSITION: : FINAL REVIEWER: FINAL REVIEW DATE: DCP Focus Questions & Answers DCP Evaluation QUESTION: ANSWER Patient and/or caregiver agree upon recommended discharge plan? : Yes Family / Caregiver's ability to cope with chronic illness: : a. Adequate (ability to meet patient's medical needs, ensures patient attends medical appts.) Patient's current cognitive status: : *Oriented to person, place, situation, time and present Patient's ability to cope with chronic illness : d. No chronic illness Patient gives permission to discuss discharge plans with: (name, relationship and number) : mother, Tricia Gonzales, Does the patient have the ability to pay for or attain post discharge needs / services? : Yes Functional screen assessment: : Basic needs can adequately be met by self Family / Caregiver's ability to cope with chronic illness: : a. Adequate (ability to meet patient's medical needs, ensures patient attends medical appts.) Physical Status: : Independent with ADL's Equipment needed for post hospitalization: : None Is there a likelihood that the patient will require additional services to return to the preadmission environment? : No Living Arrangements: : Home with Extended Family Patient with capacity for self-care or can be cared for in same environment as prior to hospitalization? : Yes Baseline cognitive status: : *Oriented to person, place, situation, time and present Physical environment modification needed / anticipated for discharge: : No Medication Management: : Patient states can read and understand medication labels Medication Management: : Patient states can afford medications Pharm[facility](s): : [facility] [address] Does Patient have transportation to get home and to follow-up medical appointments when discharged from the hospital? : Yes Would patient like to participate in any Care Coordination programs (if applicable): : Not applicable Does the patient have electricity at home? : Yes Does the patient have running water in their house? : Yes Equipment in use: : None Mental health screen: : No mental health history DCP Re-evaluation QUESTION: ANSWER Would patient like to participate in any Care Coordination programs (if applicable): : Not applicable PATIENT: GURJIT GONZALES ENCOUNTER: [id number] MEDICAL RECORD#: [id number] ADMISSION DATE: 09/14/2020 DISCHARGE DATE: 09/21/2020 ATTENDING MD: MISAEL: AGE: 50 MARITAL STATUS: S DC PLAN ID: [id number] FACILITY: [facility] PRINTED ON: 09/21/20 13:18 CT All edits/amendments must be made on the electronic document DICTATION DATE: 09/21/208 ENVIRONMENTAL AIR SPECIALIST: STEPHIE 09/21/20 1318 RPT#: [id number] DC DATE:09/21/20 STATUS: DIS IN [facility] [address] [facility] [place] [address] END OF REPORT
== END 2020-09-21 11:55 | disposition home or self-care (01) | DRG 683 ==
LOC: D.ER 14:04 → D.EDHOLD 17:10 → D.MS 17:10
PROVIDERS: Emergency Medicine; Legal Medicine; Specialist; ADMIT Emergency Medicine; ATTEND Emergency Medicine
PROC: 0TB03ZX Excision of Right Kidney, Percutaneous Approach, Diagnostic (ICD-10-PCS; principal; 2020-09-17)
DX: N17.9 Acute kidney failure, unspecified (principal); N39.0 Urinary tract infection, site not specified; I10 Essential (primary) hypertension; K21.9 Gastro-esophageal reflux disease without esophagitis; K29.70 Gastritis, unspecified, without bleeding; F41.9 Anxiety disorder, unspecified; F31.9 Bipolar disorder, unspecified; Y90.8 Blood alcohol level of 240 mg/100 ml or more; N28.89 Other specified disorders of kidney and ureter; F10.229 Alcohol dependence with intoxication, unspecified; D64.9 Anemia, unspecified